=== PATIENT | female | born 2000 | race Hispanic/Latino ===

== ENCOUNTER → 2020-03-27 08:32 | Outpatient (CLI) | payer OTHER, SELFPAY ==
[2020-03-27 09:56] LABS: Add Manual Diff / Slide Review NO; Basophils Absolute Auto 0 /uL (0-100); Basophils Percent Auto 0.4 % (0-2); Eosinophils Absolute Auto 300 /uL (0-450); Eosinophils Percent Auto 4.5 % (2-4); Hematocrit 40.2 % (36-46); Hemoglobin 13.6 g/dL (12.0-16.0); Lymphocytes Absolute Auto 2600 /uL (1100-4500); Mean Corpuscular HGB Conc 33.9 % (30-36); Mean Corpuscular Hemoglobin 28.9 PG (26-34); Mean Corpuscular Volume 85.1 fL (80-100); Monocytes Absolute Auto 400 /uL (0-900); Monocytes Percent Auto 5.9 % (3-14); Neutrophils Absolute Auto 4000 /uL (1500-7000); Neutrophils Percent Auto 54.2 % (50-75); Platelet Count 301 X10^3/uL (150-400); Red Blood Cell Count 4.72 X10^6/uL (4.0-5.2); White Blood Cell Count 7.4 X10^3/uL (4.5-11.0)
[2020-03-27 10:51] LABS: Estradiol, Total 26.6 pg/mL
[2020-03-30 17:11] LABS: Percent Free Testosterone 2.42 % (0.50-2.80); Testosterone Free 0.42 ng/dL (0.10-0.85); Testosterone Total 17.2 ng/dL (10.0-55.0)
== END ==
PROVIDERS: Family Provider Nurse Practitioner Family; PCP Nurse Practitioner Family; Referring Provider Student in an Organized Health Care Education/Training Program; Visit Provider Student in an Organized Health Care Education/Training Program
DX: F64.9 Gender identity disorder, unspecified (principal)
CPT/HCPCS: 36415; 82670; 84402; 84403; 85025

== ENCOUNTER → 2020-08-20 09:27 | Outpatient (CLI) | payer OTHER, SELFPAY ==
[2020-08-20 11:42] LABS: Add Manual Diff / Slide Review NO; Basophils Absolute Auto 100 /uL (0-100); Basophils Percent Auto 0.6 % (0-2); Eosinophils Absolute Auto 400 /uL (0-450); Eosinophils Percent Auto 5.1 % (2-4); Hematocrit 44.4 % (36-46); Hemoglobin 14.8 g/dL (12.0-16.0); Lymphocytes Absolute Auto 2600 /uL (1100-4500); Lymphocytes Percent Auto 31.7 % (25-40); Mean Corpuscular HGB Conc 33.3 % (30-36); Mean Corpuscular Hemoglobin 27.2 PG (26-34); Mean Corpuscular Volume 81.7 fL (80-100); Monocytes Absolute Auto 600 /uL (0-900); Monocytes Percent Auto 6.9 % (3-14); Neutrophils Absolute Auto 4600 /uL (1500-7000); Neutrophils Percent Auto 55.7 % (50-75); Platelet Count 294 X10^3/uL (150-400); Red Blood Cell Count 5.44 X10^6/uL (4.0-5.2); Red Cell Distribution Width 13.3 % (11.6-14.8); White Blood Cell Count 8.3 X10^3/uL (4.5-11.0)
[2020-08-20 12:27] LABS: Estradiol, Total 59.4 pg/mL
[2020-08-26 14:09] LABS: Percent Free Testosterone 5.73 % (0.50-2.80); Testosterone Free 119.75 ng/dL (0.10-0.85); Testosterone Total 2089.9 ng/dL (10.0-55.0)
== END ==
PROVIDERS: Family Provider Nurse Practitioner Family; PCP Nurse Practitioner Family; Referring Provider Student in an Organized Health Care Education/Training Program; Visit Provider Student in an Organized Health Care Education/Training Program
DX: F64.9 Gender identity disorder, unspecified (principal)
CPT/HCPCS: 36415; 82670; 84402; 84403; 85025

== ENCOUNTER → 2020-11-05 10:20 | Outpatient (CLI) | payer OTHER, SELFPAY ==
[2020-11-05 12:50] LABS: Testosterone 1850 ng/dL (5.71-77.0)
== END ==
PROVIDERS: Family Provider Nurse Practitioner Family; PCP Nurse Practitioner Family; Referring Provider Student in an Organized Health Care Education/Training Program; Visit Provider Student in an Organized Health Care Education/Training Program
DX: F64.9 Gender identity disorder, unspecified (principal)
CPT/HCPCS: 36415; 84403

== ENCOUNTER → 2020-11-12 12:06 | Outpatient (CLI) | payer OTHER, SELFPAY ==
[2020-11-12 13:08] LABS: Hematocrit 46.2 % (36-46); Hemoglobin 15.5 g/dL (12.0-16.0)
[2020-11-12 14:09] LABS: Testosterone 1450 ng/dL (5.71-77.0)
[2020-11-12 16:13] LABS: Estradiol, Total 43.2 pg/mL
== END ==
PROVIDERS: Student in an Organized Health Care Education/Training Program; Family Provider Nurse Practitioner Family; PCP Nurse Practitioner Family; Referring Provider Nurse Practitioner Family; Visit Provider Nurse Practitioner Family
DX: F64.9 Gender identity disorder, unspecified (principal)
CPT/HCPCS: 36415; 82670; 84403; 85014; 85018

== ENCOUNTER → 2020-11-29 09:15 | Outpatient (CLI) | payer OTHER, SELFPAY | PROVIDERS: Family Provider Nurse Practitioner Family; PCP Nurse Practitioner Family; Referring Provider Surgery; Visit Provider Surgery | DX: Z01.818 Encounter for other preprocedural examination (principal) | CPT/HCPCS: 93005 ==

== ENCOUNTER → 2021-01-03 09:53 | Outpatient (CLI) | payer OTHER, SELFPAY ==
[2021-01-03] MEDS: COVID-19 VACC #1, MRNA(MOD) 100 MCG/0.5 ML VIAL IM (10:05)
== END ==
PROVIDERS: Family Provider Nurse Practitioner Family; PCP Nurse Practitioner Family; Visit Provider Internal Medicine
DX: Z23 Encounter for immunization (principal)
CPT/HCPCS: 0011A; 91301

== ENCOUNTER 2021-01-10 09:46 | Emergency (ER) | payer OTHER, SELFPAY ==
[2021-01-10 09:50] VITALS: BP 142/94; PULSE 54; RESP 15; TEMP 36.6; O2SAT 99; BMI 43.5
--- NOTE | 2021-01-10 10:12 | DI.US.S_ITS ---
PROCEDURE: US ABDOMEN LIMITED INDICATIONS: ruq pain TECHNIQUE: Real-time focused scanning was performed of the abdomen, with image documentation. COMPARISON: None. FINDINGS: The liver is normal in size and demonstrates no focal lesions. Layering, shadowing gallstones are seen. The gallbladder wall is not thickened, measuring 3 mm or less. No specific pericholecystic fluid is seen. The sonographic Ramon sign is positive. There is no biliary dilatation, the common bile duct measures 2 mm. No significant pancreatic abnormality is seen on these images. IMPRESSION: Gallstones are seen and there is a positive sonographic Ramon sign. Negative for biliary dilatation. Please correlate with physical examination findings, patient presentation, and laboratory values. Dictated by: Aldo Walker M.D. on 01/10/2021 at 10:10 Approved by: Aldo Walker M.D. on 01/10/2021 at 10:11
--- NOTE | 2021-01-10 10:16 | ED_ITS ---
HPI - Abdominal Pain General Chief Complaint: Abdominal Pain Stated Complaint: stomach cramping, trouble breathing Time Seen by Provider: 01/10/21 10:05 Source: patient Mode of arrival: Ambulatory Limitations: no limitations History of Present Illness HPI narrative: Patient is a 20-year-old female transitioning to male presenting with epigastric pain that started this morning. he is also simultaneously having some back pain but it is at the cervical thoracic junction. he says it not radiating he denies any chest pain. he has no nausea or vomiting. Concern for possible gallbladder, multiple family members have had gallbladder disease and cholecystectomy he is. No fever or chills. No change with food. MD complaint: abdominal pain Onset (ago): hour(s) Pain Consistency: constant Location: epigastric Severity: mild Quality: cramping and aching Related Data Allergies Allergy/AdvReac Type Severity Reaction Status Date / Time No Known Drug Allergies Allergy Verified 01/10/21 10:02 Review of Systems Review of Systems Narrative: GENERAL: Denies chills, fatigue, malaise, fever, sweats, travel HEENT: Denies sinus pain, ear pain, sore throat, difficulty swallowing, neck pain RESPIRATORY: Denies dyspnea, cough, wheezing, hemoptysis, sputum. CARDIOVASCULAR: Denies chest pain, palpitations, orthopnea, edema GASTROINTESTINAL: See HPI : Denies dysuria, frequency, incontinence, hematuria, urinary retention, flank pain. MUSCULOSKELETAL: Denies weakness, joint pain, or bony pain SKIN: No rash, no erythema, no pruritus NEUROLOGIC: Denies weakness, dizziness, headache, numbness, change in speech, co nfusion PSYCHIATRIC: No concerning psychosocial issues. 12 point review of systems is negative except for those stated above and HPI Patient History Medical History [id number] transgender person Social History Smoking Status: Unknown if ever smoked Smoking Status: Unknown if ever smoked alcohol intake frequency: holidays/special occasions only Substance Use Type: does not use Exam Initial Vital Signs Initial Vital Signs: Vital Signs Temperature 97.8 F 01/10/21 09:50 Pulse Rate 54 L 01/10/21 09:50 Respiratory Rate 15 01/10/21 09:50 Blood Pressure 142/94 H 01/10/21 09:50 Pulse Oximetry 99 01/10/21 09:50 GENERAL: Alert 20-year-old, BMI 43 and in no acute distress. HEENT: Head atraumatic,EOMI, pupils reactive, face symmetric, moist mucous membranes CARDIOVASCULAR: Regular rate and rhythm without murmurs, rubs or gallops. RESPIRATORY: Breath sounds equal bilaterally, no wheezes rales or rhonchi. ABDOMEN: Soft, mild epigastric pain minimal right upper quadrant pain negative Ramon sign EXTREMITIES: Normal range of motion, no clubbing or edema. Neurovascularly intact NEUROLOGICAL: Alert and oriented x4.Normal gait and speech. SKIN: Warm, dry, no laceration, no petechiae, no rashes or lesions. Course Orders Ordered: ED Orders 01/10/21 10:12 US abdomen limited Stat EKG-12 Lead Stat 01/10/21 10:48 Complete Blood Count AUTO DIFF Stat Comprehensive Metabolic Panel Stat Lipase Stat Discontinued Medications Ketorolac Tromethamine (Ketorolac 30 Mg/Ml Vial) 30 mg IV NOW ONE Stop: 01/10/21 10:13 Last Admin: 01/10/21 10:42 Dose: 30 mg Documented by: SOSA Vital Signs Vital signs: Vital Signs - 8 hr 01/10/21 12:12 Pulse Rate 71 Blood Pressure 139/83 Pulse Oximetry 98 MDM - Abdominal Pain Lab Data Attestation: I reviewed the patient's lab results. Result diagrams: 01/10/21 10:48 01/10/21 10:48 Labs: Lab Results 01/10/21 01/10/21 Range/Units 10:48 10:48 WBC 7.9 (4.5-11.0) X10^3/uL RBC 5.53 H (4.0-5.2) X10^6/uL Hgb 15.3 (12.0-16.0) g/dL Hct 46.3 H (36-46) % MCV 83.6 (80-100) fL MCH 27.6 (26-34) PG MCHC 33.0 (30-36) % RDW 14.0 (11.6-14.8) % Plt Count 271 (150-400) X10^3/uL Neut % (Auto) 62.2 (50-75) % Lymph % (Auto) 25.9 (25-40) % Mingo % (Auto) 7.9 (3-14) % Eos % (Auto) 3.2 (2-4) % Baso % (Auto) 0.8 (0-2) % Neut # (Auto) 4900 (4610-1206) /uL Lymph # (Auto) 2000 (3182-3813) /uL Mingo # (Auto) 600 (0-900) /uL Eos # (Auto) 200 (0-450) /uL Baso # (Auto) 100 (0-100) /uL Sodium 138 (137-145) mmol/L Potassium 4.1 (3.4-5.1) mmol/L Chloride 103 (98-107) mmol/L Carbon Dioxide 26 (22-32) mmol/L BUN 12 (7-17) mg/dL Creatinine 0.67 (0.52-1.04) mg/dL Estimated GFR > 60.0 (>60) mL/min BUN/Creatinine Ratio 17.9 (6-22) Glucose 94 (70-100) mg/dL Calcium 9.3 (8.4-10.2) mg/dL Total Bilirubin 0.4 (0.2-1.3) mg/dL AST 23 (14-36) IU/L ALT 19 (<35) IU/L Alkaline Phosphatase 72 (38-126) U/L Total Protein 7.7 (6.3-8.2) g/dL Albumin 4.3 (3.5-5.0) g/dL Globulin 3.4 (1.7-4.1) g/dL Albumin/Globulin Ratio 1.3 (1.0-2.8) Lipase 116 (23-300) U/L Point of care testing: Point of Care Testing Test Results Negative Urine Dip Bedside Urine Glucose Negative Bedside Urine Bilirubin - Negative Bedside Urine Ketone - Negative Urine Specific Henderson 1.025 Bedside Urine Occult Blood +/- Bedside Urine pH 6.5 Bedside Urine Protein - Negative Bedside Urine Urobilinogen - Negative Bedside Urine Nitrite - Negative Bedside Urine Leukocytes + 70 Esterase Imaging Data US - abdomen: Radiologist's Impression: PROCEDURE: US ABDOMEN LIMITED INDICATIONS: ruq pain TECHNIQUE: Real-time focused scanning was performed of the abdomen, with image documentation. COMPARISON: None. FINDINGS: The liver is normal in size and demonstrates no focal lesions. Layering, shadowing gallstones are seen. The gallbladder wall is not thickened, measuring 3 mm or less. No specific pericholecystic fluid is seen. The sonographic Ramon sign is positive. There is no biliary dilatation, the common bile duct measures 2 mm. No significant pancreatic abnormality is seen on these images. IMPRESSION: Gallstones are seen and there is a positive sonographic Ramon sign. Negative for biliary dilatation. Please correlate with physical examination findings, patient presentation, and laboratory values. Dictated by: Aldo Walker M.D. on 01/10/2021 at 10:10 ECG Data Attestation: I personally reviewed and interpreted this ECG as follows: Interpretation: Normal sinus rhythm rate 73 p.r. interval 148 QRS [address] changes MDM Narrative Medical decision making narrative: Patient is found to have cholelithiasis without acute cholecystitis. She has no sign of obstructing gallstones. I discussed case with Dr. Anglin who agrees with outpatient follow-up. Patient's pain is overall improved with Toradol. Discharge Plan Departure Patient Disposition: Home Clinical Impression: Cholelithiases Qualifiers: Cholelithiasis location: gallbladder Cholecystitis presence: without chol ecystitis Biliary obstruction: without biliary obstruction Qualified Code(s): K80.20 - Calculus of gallbladder without cholecystitis without obstruction Instructions: DI for Gallstones Activity Restrictions/Additional Instructions: *You have been diagnosed with cholelithiasis, gallstones *What to do: At this time he will likely need to have her gallbladder removed however not emergently indicated today. This can be scheduled. *Continue to take medications as directed Ibuprofen 600 mg every 6-8 hours if needed for [id number] pain *Follow up with your primary care provider in 2-[address] Anglin today to schedule follow-up appointment *Return to ER if you should have increasing right upper quadrant pain, fever, persistent vomiting or any new, worsening or concerning symptoms Referrals: Yanna Anglin MD [Physician] - Amiarani Stover ARNP [Primary Care Provider] -
[2021-01-10] MEDS: KETOROLAC 30 MG/ML VIAL IV (10:42)
[2021-01-10 10:54] LABS: Add Manual Diff / Slide Review NO; Basophils Absolute Auto 100 /uL (0-100); Basophils Percent Auto 0.8 % (0-2); Eosinophils Absolute Auto 200 /uL (0-450); Eosinophils Percent Auto 3.2 % (2-4); Hematocrit 46.3 % (36-46); Hemoglobin 15.3 g/dL (12.0-16.0); Lymphocytes Absolute Auto 2000 /uL (1100-4500); Lymphocytes Percent Auto 25.9 % (25-40); Mean Corpuscular Hemoglobin 27.6 PG (26-34); Mean Corpuscular Volume 83.6 fL (80-100); Monocytes Absolute Auto 600 /uL (0-900); Monocytes Percent Auto 7.9 % (3-14); Neutrophils Absolute Auto 4900 /uL (1500-7000); Neutrophils Percent Auto 62.2 % (50-75); Platelet Count 271 X10^3/uL (150-400); Red Blood Cell Count 5.53 X10^6/uL (4.0-5.2); White Blood Cell Count 7.9 X10^3/uL (4.5-11.0)
[2021-01-10 11:21] LABS: Alanine Aminotransferase 19 IU/L (<35); Albumin 4.3 g/dL (3.5-5.0); Albumin Globulin Ratio 1.3 (1.0-2.8); Alkaline Phosphatase 72 U/L (38-126); Aspartate Aminotransferase 23 IU/L (14-36); BUN Creatinine Ratio 17.9 (6-22); Bilirubin Total 0.4 mg/dL (0.2-1.3); Blood Urea Nitrogen 12 mg/dL (7-17); Calcium 9.3 mg/dL (8.4-10.2); Carbon Dioxide 26 mmol/L (22-32); Chloride 103 mmol/L (98-107); Estimated Glomerular Filt Rate > 60.0 mL/min (>60); Globulin 3.4 g/dL (1.7-4.1); Glucose 94 mg/dL (70-100); HEMOLYSIS < 15 (0-50); Lipase 116 U/L (23-300); Potassium 4.1 mmol/L (3.4-5.1); Sodium 138 mmol/L (137-145); Total Protein 7.7 g/dL (6.3-8.2)
[2021-01-10 12:12] VITALS: BP 139/83; PULSE 71; O2SAT 98
== END 2021-01-10 12:13 | disposition home or self-care (01) ==
PROVIDERS: Emergency Provider Emergency Medicine; Family Provider Nurse Practitioner Family; PCP Nurse Practitioner Family
DX: K80.20 Calculus of gallbladder without cholecystitis without obstruction (principal)
CPT/HCPCS: 36415; 76705; 80053; 81003; 81025; 83690; 85025; 93005; 93010; 96374; 99284; J1885

== ENCOUNTER 2021-01-29 13:16 | Day surgery (SDC) | payer OTHER, SELFPAY ==
[2021-01-22 15:19] VITALS: BMI 42.3
[2021-01-29] VITALS (13 sets, daily range): BP systolic 118–148; BP diastolic 76–95; PULSE 63–89; RESP 10–20; TEMP 36.7–36.9; O2SAT 95–99; BMI 42.3
--- NOTE | 2021-01-29 | PATH_ITS ---
[facility] Accession Number: [id number] . 01 Material submitted: . gallbladder - GALLBLADDER . 02 Diagnosis: Gallbladder, Cholecystectomy: Chronic cholecystitis with cholelithiasis. Negative for dysplasia and malignancy. [facility] 02/01/2021 1025 Local . 02 Electronically signed: . Lucinda Bernal MD, Pathologist NPI- [id number] . 01 Gross description: . The specimen is received in formalin, labeled gallbladder and consists of a 6.6 x 2.5 x 2.0 cm previously disrupted gallbladder with a 0.2 cm in diameter cystic duct. The serosa is abdi-pink and wrinkled. Opening reveals green viscous bile with multiple abdi bosselated choleliths ranging from 0.1-0.4 cm. The mucosa is abdi-green and velvety and the wall thickness measures 0.2 cm. Ornament Stitcher sections are submitted to include the en face cystic duct margin (blue) in cassette A1. ([id number]) /[facility] 01/30/2021 1046 Local . 02 Pathologist provided ICD-10: K80.60 . 02 CPT . 330787 Performed at: 01 [facility] [address], [place], [place] [id number] MD Yordan Apodaca MD Phone: [phone] Performed at: 02 [facility] [address] [place], [place] [id number] MD Lucinda Bernal MD Phone: [phone]
[2021-01-29] MEDS: LACTATED RINGERS 1,000 ML 42 ML IV (13:29)
[2021-01-29] MEDS: GABAPENTIN 300 MG CAPSULE PO (13:32)
[2021-01-29] MEDS: ACETAMINOPHEN 325 MG TABLET 975 MG PO (13:32)
[2021-01-29 13:45] LABS: COVID19 -Nasal RAPID Negative (Negative)
[2021-01-29] MEDS: SCOPOLAMINE 1 PATCH TOP (14:34)
--- NOTE | 2021-01-29 14:38 | PM.PREOP ---
Pre-operative Note Interval Note History & Physical reviewed/Exam performed by Physician: Yes Changes to H&P: No
[2021-01-29] MEDS: CEFAZOLIN 1 GM VIAL 2 GM IV (14:55)
--- NOTE | 2021-01-29 15:11 | SUR.OPER ---
Supine on padded OR bed, head on pillow, safety belt at thigh, left arm padded and tucked at side. Right arm secured on padded arm board <90 degrees abduction. Legs uncrossed. Padded footboard in place, gel pad under bilateral heels. Tape over blanket to secure lower legs.
[2021-01-29] MEDS: BUPIVACAINE 0.25% (PF) VIAL 30 ML INJ (15:26)
[2021-01-29] MEDS: LACTATED RINGERS 1,000 ML 120 ML IV (16:14)
[2021-01-29] MEDS: fentaNYL 100 MCG/2 ML INJ IV ×2 (16:31→16:38)
[2021-01-29] MEDS: OXYCODONE IR 5 MG TABLET PO ×2 (16:34→17:10)
--- NOTE | 2021-01-29 16:36 | PM.OP.1 ---
Operative Date/Time/Diagnoses Date of procedure: 01/29/21 Time of procedure: 16:36 Pre-op diagnosis: Biliary colic Post-op diagnosis: same Procedure & Clinicians Procedure: Laparoscopic cholecystectomy Same procedure as scheduled: Yes Indications: Biliary colic Surgeon: Ag Salazar Anesthesia Type: General Operative Notes Findings: Micro cholelithiasis Estimated Blood Loss (mL): 30 Procedure in detail: The patient was placed supine on the table and bilateral lower extremity compression devices were applied. Anesthesia was induced they were intubated with an endotracheal tube and received 2g of Ancef. A time-out was performed. They were prepped and draped in sterile fashion. An infraumbilical incision was made, the umbilical stalk was elevated and the fascia was sharply incised entering the abdomen atraumatically. A blunt tip 12mm balloon trocar was then inserted, pneumoperitoneum was established and inspection of the abdomen demonstrated no evidence of injury. They were placed head up and right side up and then a 11 mm port was placed high in the epigastrium and two 5mm in the right upper quadrant. The gallbladder was grasped by the fundus and retracted over the liver and retracted laterally by the infundibulum. For some flimsy adhesions between the omentum and the gallbladder consistent with prior cholecystitis. These were taken down using electrocautery. Using electrocautery the lateral plane between the gallbladder and the liver was opened towards the fundus. The gallbladder was then retracted laterally and the medial plane was developed in the same manner. With the gallbladder mobilized the bottom of the cystic plate was visualized. The hepatocystic triangle was meticulosly skeletonized using hook electrocautery of all fat and fibrous tissue from both the front and the back. Only two structures were then clearly seen entering the gallbladder the cystic duct and the cystic artery. With the critical view of safety fully established the cystic duct was clipped twice proximally and once distally using the 10 mm clip applied under direct visualization and then sharply divided. The cystic artery was divided in the same fashion. The gallbladder was removed from the liver bed using electro cautery. The liver bed was then inspected for hemostasis and this was achieved. The abdomen was irrigated with sterile saline and inspection was made that showed the clips in good position. The specimen was removed using Endo-Catch. The abdomen was desufflated. The umbilical fascia was closed with 0 Vicryl in a [id number] fashion under direct visualization. Skin incisions were irrigated and closed with 4-0 Monocryl. 30 ml of 0.25% bupivacaine was infiltrated into the subcutaneous tissue of the incisions. The wounds were sealed with Dermabond. Patient emerged from anesthesia was extubated and transferred to recovery in stable condition. The sponge and instrument count at the end of the operation was correct. Complications: none Post-operative Condition: stable Disposition: same day surgery
--- NOTE | 2021-01-29 16:44 | SUR.PHASEI ---
Pt awake, alert taking juice and apple sauce. SBAR report at bedside to LETICIA Cobb who has been with this RN for recovery.
--- NOTE | 2021-01-29 17:30 | SUR.PHASEII ---
Call from Pt's Mother inquiring about progress towards discharge. Pt states he wants a little more time to sleep and we agreed to reassess in 30 minutes. Mother informed and we will call her in 30 minutes to update.
--- NOTE | 2021-01-29 18:06 | SUR.PHASEII ---
Patient beginning to get dressed.
== END 2021-01-29 18:19 | disposition home or self-care (01) ==
PROVIDERS: Family Provider Nurse Practitioner Family; PCP Nurse Practitioner Family; Referring Provider Surgery; Visit Provider Surgery
PROC: 0FT44ZZ Resection of Gallbladder, Percutaneous Endoscopic Approach (ICD-10-PCS; CPT 47562; principal; 2021-01-29 14:45)
DX: K80.10 Calculus of gallbladder with chronic cholecystitis without obstruction (principal); E66.01 Morbid (severe) obesity due to excess calories; Z68.41 Body mass index [BMI] 40.0-44.9, adult; Z20.822 Contact with and (suspected) exposure to COVID-19
CPT/HCPCS: 47562; 87635; J0690; J1100; J1885; J2405; J2704; J3010

== ENCOUNTER → 2021-02-08 09:53 | Outpatient (CLI) | payer OTHER, SELFPAY ==
[2021-02-08] MEDS: COVID-19 VACC #2, MRNA(MOD) 100 MCG/0.5 ML VIAL IM (10:03)
== END ==
PROVIDERS: Family Provider Nurse Practitioner Family; PCP Nurse Practitioner Family; Visit Provider Internal Medicine
DX: Z23 Encounter for immunization (principal)
CPT/HCPCS: 0012A; 91301

== ENCOUNTER → 2021-09-02 13:18 | Outpatient (CLI) | payer OTHER, SELFPAY ==
[2021-09-02 14:32] LABS: Hematocrit 48.3 % (36-46); Hemoglobin 16.2 g/dL (12.0-16.0)
[2021-09-02 16:02] LABS: Testosterone 908 ng/dL (5.71-77.0)
[2021-09-02 16:14] LABS: Estradiol, Total 48.3 pg/mL
== END ==
PROVIDERS: Family Provider Nurse Practitioner Family; PCP Nurse Practitioner Family; Referring Provider Student in an Organized Health Care Education/Training Program; Visit Provider Student in an Organized Health Care Education/Training Program
DX: F64.9 Gender identity disorder, unspecified (principal)
CPT/HCPCS: 36415; 82670; 84403; 85014; 85018

== ENCOUNTER → 2022-10-13 08:18 | Outpatient (CLI) | payer OTHER, SELFPAY ==
[2022-10-13 09:54] LABS: Estradiol, Total 35.5 pg/mL
== END ==
PROVIDERS: Family Provider Nurse Practitioner Family; PCP Nurse Practitioner Family; Referring Provider Internal Medicine Gastroenterology; Visit Provider Internal Medicine Gastroenterology
DX: F64.9 Gender identity disorder, unspecified (principal)
CPT/HCPCS: 36415; 82670